=== PATIENT | female | born 1950 | race Caucasian/White ===

== ENCOUNTER 2024-09-30 16:18 | Inpatient (IN) | payer MEDICARE, MEDICAID ==
[~2024-09-30] VITALS: Ht 157.5 cm; Wt 108.6 kg
[2024-09-30 17:44] LABS: BASOPHILS % (AUTO) 0.4 % (0-1); EOSINOPHILS # (AUTO) 0.2 X10'3 (0-0.9); EOSINOPHILS % (AUTO) 1.7 % (0-6); HEMATOCRIT 42.5 % (35.0-45.0); HEMOGLOBIN 14.4 g/dl (12.0-16.0); LYMPHOCYTES # (AUTO) 0.9 X10'3 (1.1-4.8); LYMPHOCYTES % (AUTO) 6.3 % (21-51); MEAN CORPUSCULAR HEMOGLOBIN 32.6 PG (27.0-31.0); MEAN CORPUSCULAR HGB CONC 33.9 g/dL (33.0-36.5); MEAN CORPUSCULAR VOLUME 96.3 FL (78-98); MEAN PLATELET VOLUME 7.8 FL (7.4-10.4); MONOCYTES # (AUTO) 1.1 X10'3 (0-0.9); MONOCYTES % (AUTO) 7.7 % (2-12); NEUTROPHILS # (AUTO) 11.5 X10'3 (1.8-7.7); NEUTROPHILS % (AUTO) 83.9 % (42-75); PLATELET COUNT 191 X10'3 (140-440); RED BLOOD COUNT 4.41 X10'6 (4.20-5.60); RED CELL DISTRIBUTION WIDTH 14.1 % (11.5-14.5); WHITE BLOOD COUNT 13.7 X10'3 (4.5-11.0)
[2024-09-30] MEDS: clindamycin 600mg/D5W 50ml 50 ML IV ONE (17:54)
[2024-09-30] MEDS ORDERED: iohexol 300mg/ml 100ml inj. ONE (17:54)
[2024-09-30] MEDS: normal saline 1000ML IV soln IVB ONE ×2 (17:54→20:02)
[2024-09-30 17:59] LABS: ALANINE AMINOTRANSFERASE 19 U/L (12-78); ALBUMIN 3.3 G/DL (3.4-5.0); ALBUMIN/GLOBULIN RATIO 0.7 (1.1-1.5); ALKALINE PHOSPHATASE 196 IU/L (46-116); ASPARTATE AMINO TRANSFERASE 19 U/L (10-37); BILIRUBIN,TOTAL 0.4 MG/DL (0.1-1.0); BLOOD UREA NITROGEN 11 MG/DL (7-18); CALCIUM 9.4 MG/DL (8.5-10.1); CHLORIDE 101 MMOL/L (99-107); CREATININE 0.61 MG/DL (0.40-0.90); GLUCOSE 116 MG/DL (70-104); SODIUM 139 MMOL/L (135-145); eCRCL 63 ML/MIN; eGFR > 90 ML/MIN
[2024-09-30 18:06] LABS: MAGNESIUM 2.1 MG/DL (1.5-2.4); PRO BRAIN NATRIURETIC PEPTIDE 1201 PG/ML (0-450)
[2024-09-30 18:07] LABS: ANION GAP 5 (8-16); POTASSIUM 4.4 MMOL/L (3.5-5.1); TOTAL CARBON DIOXIDE 32.8 MMOL/L (24-32)
[2024-09-30 18:20] LABS: BILIRUBIN,URINE NEGATIVE (Neg); CLARITY,URINE CLEAR (Clear); COLOR,URINE YELLOW (Yellow); GLUCOSE, URINE NEGATIVE (Neg); KETONES,URINE NEGATIVE (Neg); LEUKOCYTE ESTERASE ,URINE NEGATIVE (Neg); NITRITES, URINE NEGATIVE (Neg); OCCULT BLOOD,URINE NEGATIVE (Neg); PROTEIN,URINE NEGATIVE (Neg); UROBILINOGEN,URINE 0.2 E.U/dL (0.2-1.0)
[2024-09-30 18:21] LABS: UA COLLECTION TYPE NON-SPECIFIED
[2024-09-30] MEDS: acetaminophen 1,000mg/100ml IV 100 ML IV SCH (19:37)
[2024-09-30] MEDS: vancomycin/NS 1 GM ADD-VANTAGE 250 ML IV SCH (22:58)
[2024-09-30] MEDS ORDERED: potassium Cl 40MEQ/1/2NS 520ml 520 ML IV PRN (23:20)
[2024-09-30] MEDS ORDERED: PHEN64.8 PO (23:20)
[2024-09-30] MEDS ORDERED: ASPI-1265 PO (23:20)
[2024-09-30] MEDS ORDERED: ondansetron/PF 4mg/2ml inj IV PRN (23:20)
[2024-09-30] MEDS ORDERED: LACO100T2 PO ×2 (23:20)
[2024-09-30] MEDS ORDERED: magnesium sulf-water 2g/50mL 50 ML IV PRN (23:20)
[2024-09-30] MEDS ORDERED: magnesium Cl slow-release 64mg tablet PO PRN (23:20)
[2024-09-30] MEDS ORDERED: potassium Cl 20 mEq SR tablet PO PRN ×2 (23:20)
[2024-09-30] MEDS ORDERED: TERB250T89 PO (23:20)
[2024-09-30] MEDS ORDERED: magnesium hydroxide 30ml (MOM) UD suspension PO PRN (23:20)
[2024-09-30] MEDS ORDERED: PREG300C PO (23:20)
[2024-09-30] MEDS ORDERED: SIMV-342 PO (23:20)
[2024-09-30] MEDS ORDERED: PHEN97.22 PO (23:20)
[2024-09-30] MEDS ORDERED: LACO200T2 PO ×2 (23:20)
[2024-09-30] MEDS ORDERED: mag hydrox/Alum hydrox/simeth 30ml oral suspension PO PRN (23:20)
[2024-09-30] MEDS ORDERED: PERA8TAB PO (23:20)
[2024-09-30] MEDS ORDERED: magnesium sulf-water 4G/100mL 100 ML IV PRN (23:20)
[2024-10-01] MEDS ORDERED: phenoBARBITAL 30mg tablet PO ONE (03:20)
[2024-10-01] MEDS: phenoBARBITAL 30mg tablet PO ONE (03:58)
[2024-10-01] MEDS: LACOSAMIDE 50 MG TABLET PO ONE ×2 (03:59)
[2024-10-01 04:36] LABS: BASOPHILS % (AUTO) 0.3 % (0-1); EOSINOPHILS # (AUTO) 0.1 X10'3 (0-0.9); EOSINOPHILS % (AUTO) 0.8 % (0-6); HEMATOCRIT 37.5 % (35.0-45.0); HEMOGLOBIN 12.4 g/dl (12.0-16.0); LYMPHOCYTES # (AUTO) 1.2 X10'3 (1.1-4.8); LYMPHOCYTES % (AUTO) 9.1 % (21-51); MEAN CORPUSCULAR HEMOGLOBIN 31.9 PG (27.0-31.0); MEAN CORPUSCULAR HGB CONC 33.2 g/dL (33.0-36.5); MEAN CORPUSCULAR VOLUME 96.2 FL (78-98); MEAN PLATELET VOLUME 7.8 FL (7.4-10.4); MONOCYTES % (AUTO) 7.5 % (2-12); NEUTROPHILS # (AUTO) 10.7 X10'3 (1.8-7.7); NEUTROPHILS % (AUTO) 82.3 % (42-75); PLATELET COUNT 175 X10'3 (140-440); RED BLOOD COUNT 3.89 X10'6 (4.20-5.60); RED CELL DISTRIBUTION WIDTH 14.4 % (11.5-14.5)
[2024-10-01 04:58] LABS: ALANINE AMINOTRANSFERASE 16 U/L (12-78); ALBUMIN 2.6 G/DL (3.4-5.0); ALBUMIN/GLOBULIN RATIO 0.7 (1.1-1.5); ALKALINE PHOSPHATASE 147 IU/L (46-116); ANION GAP 6 (8-16); ASPARTATE AMINO TRANSFERASE 14 U/L (10-37); BILIRUBIN,TOTAL 0.5 MG/DL (0.1-1.0); BLOOD UREA NITROGEN 9 MG/DL (7-18); BUN/CREATININE RATIO 14.8 (10.0-20.0); CALCIUM 8.4 MG/DL (8.5-10.1); CHLORIDE 105 MMOL/L (99-107); CREATININE 0.61 MG/DL (0.40-0.90); GLUCOSE 113 MG/DL (70-104); MAGNESIUM 2.1 MG/DL (1.5-2.4); POTASSIUM 3.6 MMOL/L (3.5-5.1); SODIUM 141 MMOL/L (135-145); TOTAL CARBON DIOXIDE 29.8 MMOL/L (24-32); TOTAL PROTEIN 6.3 G/DL (6.4-8.2); eCRCL 63 ML/MIN; eGFR > 90 ML/MIN
[2024-10-01] MEDS: levoTHYROXINE 75mcg tablet PO SCH (06:13)
[2024-10-01] MEDS ORDERED: LACOSAMIDE 50 MG TABLET PO SCH ×2 (08:00)
[2024-10-01] MEDS: terbinafine 250mg tablet PO SCH (09:21)
[2024-10-01] MEDS: pregabalin 75mg capsule PO SCH (09:21)
[2024-10-01] MEDS: aspirin 81mg tab.chew PO SCH (09:21)
[2024-10-01] MEDS: docusate sod 100mg capsule PO SCH (09:22)
[2024-10-01] MEDS: heparin, porcine 5000 units/ml vial SQ SCH (09:22)
[2024-10-01] MEDS: piperacillin/tazo 3.375gm/50ml 50 ML IV SCH (10:15)
[2024-10-01] MEDS: K and/or MAG REPLACEMENT MC SCH (10:56)
[2024-10-01] MEDS: LACOSAMIDE 50 MG TABLET PO SCH (11:45)
[2024-10-01] MEDS ORDERED: acetaminophen 325mg tablet PO ONE (14:35)
[2024-10-01] MEDS: diphenhydrAMINE 50 mg/ml inj IV ONE (14:52)
[2024-10-01] MEDS: acetaminophen 325mg tablet PO PRN (14:52)
[2024-10-01] MEDS: methylPREDNISolone sod succ 125mg/2ml vial IV ONE (14:52)
[2024-10-01 18:00] VITALS: BP 165/87; PULSE 66; RESP 10; O2SAT 98
[2024-10-01] MEDS: VANCOMYCIN LEVEL IV ONE (19:30)
[2024-10-01] MEDS: PHENOBARBITAL 64.8 MG PO SCH (21:00)
[2024-10-01] MEDS: PERAMPANEL 8 MG PO SCH (21:00)
[2024-10-01] MEDS: diphenhydrAMINE 50 mg/ml inj IV SCH (21:59)
[2024-10-01 22:00] VITALS: BP 117/63; PULSE 102; RESP 18; TEMP 97.8; O2SAT 96
[2024-10-01] MEDS: simvastatin 20mg tablet PO SCH (22:00)
[2024-10-01] MEDS: VANCOMYCIN/WATER FOR INJ (PEG) 750MG/150 ML IVPB IV SCH (23:50)
[2024-10-02] VITALS (8 sets, daily range): BP systolic 93–113; BP diastolic 40–67; PULSE 78–106; RESP 14–19; TEMP 97.2–98.1; O2SAT 96–99
[2024-10-02 07:41] LABS: BASOPHILS % (AUTO) 0.5 % (0-1); EOSINOPHILS # (AUTO) 0.1 X10'3 (0-0.9); EOSINOPHILS % (AUTO) 1.9 % (0-6); HEMATOCRIT 38.4 % (35.0-45.0); HEMOGLOBIN 12.8 g/dl (12.0-16.0); LYMPHOCYTES # (AUTO) 1.2 X10'3 (1.1-4.8); LYMPHOCYTES % (AUTO) 17.1 % (21-51); MEAN CORPUSCULAR HEMOGLOBIN 32.4 PG (27.0-31.0); MEAN CORPUSCULAR HGB CONC 33.2 g/dL (33.0-36.5); MEAN CORPUSCULAR VOLUME 97.6 FL (78-98); MEAN PLATELET VOLUME 8.1 FL (7.4-10.4); MONOCYTES # (AUTO) 0.7 X10'3 (0-0.9); MONOCYTES % (AUTO) 9.3 % (2-12); NEUTROPHILS % (AUTO) 71.2 % (42-75); PLATELET COUNT 166 X10'3 (140-440); RED BLOOD COUNT 3.94 X10'6 (4.20-5.60); RED CELL DISTRIBUTION WIDTH 14.3 % (11.5-14.5); WHITE BLOOD COUNT 7.1 X10'3 (4.5-11.0)
[2024-10-02 07:47] LABS: ALANINE AMINOTRANSFERASE 10 U/L (12-78); ALKALINE PHOSPHATASE 132 IU/L (46-116); ANION GAP 9 (8-16); ASPARTATE AMINO TRANSFERASE 19 U/L (10-37); BILIRUBIN,TOTAL 0.7 MG/DL (0.1-1.0); CHLORIDE 107 MMOL/L (99-107); MAGNESIUM 2.4 MG/DL (1.5-2.4); POTASSIUM 3.6 MMOL/L (3.5-5.1); SODIUM 141 MMOL/L (135-145); TOTAL CARBON DIOXIDE 25.2 MMOL/L (24-32); TOTAL PROTEIN 6.6 G/DL (6.4-8.2)
[2024-10-02] MEDS: nystatin 15 GM powder TP SCH (07:47)
[2024-10-02 08:26] LABS: ALBUMIN 2.6 G/DL (3.4-5.0); ALBUMIN/GLOBULIN RATIO 0.7 (1.1-1.5); BLOOD UREA NITROGEN 13 MG/DL (7-18); BUN/CREATININE RATIO 23.2 (10.0-20.0); CALCIUM 8.7 MG/DL (8.5-10.1); CREATININE 0.56 MG/DL (0.40-0.90); GLUCOSE 94 MG/DL (70-104); eCRCL 69 ML/MIN; eGFR > 90 ML/MIN
[2024-10-02] MEDS: normal saline 1000ml 1,000 ML IV SCH (11:05)
[2024-10-02] MEDS: erythromycin ophthalmic ointment 1gm tube EACHEYE ONE (16:45)
[2024-10-02] MEDS: lactose-reduced food (Ensure Enlive) - 237ml bottle PO SCH (18:42)
[2024-10-02] MEDS: clindamycin 300mg/D5W 50mL 50 ML IV SCH (20:11)
[2024-10-02] MEDS: phenoBARBITAL 30mg tablet PO ONE (20:14)
[2024-10-03 02:00] VITALS: BP 101/65; PULSE 99; RESP 18; TEMP 97.5; O2SAT 98
[2024-10-03 07:00] VITALS: BP 137/71; PULSE 99; RESP 15; TEMP 97.6; O2SAT 90
[2024-10-03 08:00] VITALS: RESP 15; O2SAT 90
[2024-10-03] MEDS: predniSONE 20 mg tablet PO SCH (08:21)
[2024-10-03 10:41] LABS: BASOPHILS % (AUTO) 0.9 % (0-1); EOSINOPHILS # (AUTO) 0.5 X10'3 (0-0.9); HEMATOCRIT 36.4 % (35.0-45.0); HEMOGLOBIN 12.3 g/dl (12.0-16.0); LYMPHOCYTES # (AUTO) 1.2 X10'3 (1.1-4.8); LYMPHOCYTES % (AUTO) 24.2 % (21-51); MEAN CORPUSCULAR HEMOGLOBIN 32.8 PG (27.0-31.0); MEAN CORPUSCULAR HGB CONC 33.8 g/dL (33.0-36.5); MEAN PLATELET VOLUME 7.7 FL (7.4-10.4); MONOCYTES # (AUTO) 0.4 X10'3 (0-0.9); NEUTROPHILS % (AUTO) 57.9 % (42-75); PLATELET COUNT 179 X10'3 (140-440); RED BLOOD COUNT 3.75 X10'6 (4.20-5.60); RED CELL DISTRIBUTION WIDTH 14.5 % (11.5-14.5); WHITE BLOOD COUNT 5.1 X10'3 (4.5-11.0)
[2024-10-03 11:00] VITALS: BP 104/68; PULSE 103; RESP 16; TEMP 98; O2SAT 91
[2024-10-03 11:12] LABS: ALANINE AMINOTRANSFERASE 14 U/L (12-78); ALBUMIN 2.6 G/DL (3.4-5.0); ALBUMIN/GLOBULIN RATIO 0.7 (1.1-1.5); ALKALINE PHOSPHATASE 118 IU/L (46-116); ANION GAP 5 (8-16); ASPARTATE AMINO TRANSFERASE 12 U/L (10-37); BILIRUBIN,TOTAL 0.1 MG/DL (0.1-1.0); BLOOD UREA NITROGEN 13 MG/DL (7-18); BUN/CREATININE RATIO 22.4 (10.0-20.0); CALCIUM 8.6 MG/DL (8.5-10.1); CHLORIDE 107 MMOL/L (99-107); CREATININE 0.58 MG/DL (0.40-0.90); GLUCOSE 133 MG/DL (70-104); POTASSIUM 4.1 MMOL/L (3.5-5.1); SODIUM 142 MMOL/L (135-145); THYROID STIMULATING HORMONE 0.44 ulU/ml (0.34-4.50); TOTAL CARBON DIOXIDE 30.4 MMOL/L (24-32); TOTAL PROTEIN 6.4 G/DL (6.4-8.2); eCRCL 66 ML/MIN; eGFR > 90 ML/MIN
[2024-10-03] MEDS ORDERED: CLIN-232 PO (11:21)
[2024-10-03] MEDS ORDERED: EMPA10TA PO (11:21)
== END 2024-10-03 13:23 | disposition home or self-care (01) | DRG 871 ==
LOC: ER 16:19 → ED HOLD 21:54 → PCU 3S 10-01 18:05
PROVIDERS: ADMIT Internal Medicine Sleep Medicine; ATTEND Family Medicine
DX: A41.9 Sepsis, unspecified organism (principal); I50.23 Acute on chronic systolic (congestive) heart failure; L03.211 Cellulitis of face; E66.2 Morbid (severe) obesity with alveolar hypoventilation; Z68.41 Body mass index [BMI] 40.0-44.9, adult; J96.10 Chronic respiratory failure, unspecified whether with hypoxia or hypercapnia; I27.20 Pulmonary hypertension, unspecified; E03.9 Hypothyroidism, unspecified; Z88.0 Allergy status to penicillin; E78.5 Hyperlipidemia, unspecified; Z79.82 Long term (current) use of aspirin; Z79.899 Other long term (current) drug therapy; Z99.81 Dependence on supplemental oxygen; Z86.73 Personal history of transient ischemic attack (TIA), and cerebral infarction without residual deficits
CPT/HCPCS: 36415; 70487; 71045; 80053; 80202; 81003; 83605; 83735; 83880; 84145; 84443; 84484; 85025; 87040; 87081; 93005; 93306; 97116; 97161; 97530; 99291; A4615; A6250; A6258; G0378; J0131; J1200; J1644; J2543; J2919; J3370; J3372; J3490; J7030; J7512; Q9967